=== PATIENT | female | born 1990 | race Two or more races ===

== ENCOUNTER 2020-07-09 15:37 | Emergency (ER) | payer OTHER ==
[~2020-07-09] VITALS: Ht 160 cm; Wt 90.1 kg
[2020-07-09 16:24] VITALS: BP 129/75
== END 2020-07-09 17:00 | disposition left against medical advice (07) ==
LOC: ER 15:37
DX: R51.9 Headache, unspecified (principal); Z53.21 Procedure and treatment not carried out due to patient leaving prior to being seen by health care provider